=== PATIENT | male | born 1935 | race Caucasian/White ===

== ENCOUNTER 2017-05-29 07:00 | Emergency (ER) | payer MEDICARE, BC ==
[~2017-05-29 07:00] MED LIST: ASPIR-TRIN325 MG PO; ASPIRIN325 M1 PO; AUGMENTIN875 M1 PO; BAYER ASPIRIN325 M1; CIPRO PO; COLACE PO; COUMADIN PO; COUMADIN5 MG PO; FISH OIL 1,0001 CAP PO; FLOMAX0.4 M1; HCTZ; HYDROCHLOROTHIA25 MG PO; HYDROCODON-ACE1 EAC7 PO; IMDUR-ER30 M1 PO; IMDUR-ER30 MG PO; IMDUR30 MG; LIPITOR PO; LOPRESSOR PO; LORTAB 10-5001 EACH PO; MULTIPLE VITAMI1 T11 PO; NITROSTAT0.4 MG SL; NORVASC10 MG PO; PRAVACHOL; TOPROL XL50 MG PO; XANAX0.5 MG PO
[2017-05-29] MEDS ORDERED: FLOMAX0.4 M1 (07:20)
[2017-05-29] MEDS ORDERED: VITAMIN E100 UNIT (07:20)
[2017-05-29] MEDS ORDERED: ELIQUIS2.5 MG (07:20)
[2017-05-29] MEDS ORDERED: B-COMPLEX-VITA1 EACH (07:20)
== END 2017-05-29 08:41 | disposition home or self-care (01) ==
LOC: SED 07:00
DX: S61.012A Laceration without foreign body of left thumb without damage to nail, initial encounter (principal); I10 Essential (primary) hypertension; Z79.899 Other long term (current) drug therapy; Z23 Encounter for immunization; X58.XXXA Exposure to other specified factors, initial encounter; Y92.009 Unspecified place in unspecified non-institutional (private) residence as the place of occurrence of the external cause
CPT/HCPCS: 90471; 90715; 99283